=== PATIENT | female | born 1965 | race Caucasian/White ===

== ENCOUNTER → 2016-11-20 | Outpatient (CLI) | payer OTHER ==
[~2016-11-20] MED LIST: ABILIFY 10MG TA10 MG PO; PRISTIQ100 MG PO; WELLBUTRIN XL300 M1 PO
== END ==
LOC: BHSO 08:53
DX: F33.42 Major depressive disorder, recurrent, in full remission (principal)

== ENCOUNTER → 2017-05-06 | Outpatient (CLI) | payer OTHER | LOC: MC.RAD 10:27 | DX: Z12.31 Encounter for screening mammogram for malignant neoplasm of breast (principal) ==

== ENCOUNTER → 2017-05-19 | Outpatient (CLI) | payer OTHER | LOC: BHSO 08:17 | DX: F33.42 Major depressive disorder, recurrent, in full remission (principal) ==

== ENCOUNTER → 2017-12-04 | Outpatient (CLI) | payer OTHER | LOC: BHSO 08:47 | DX: F33.1 Major depressive disorder, recurrent, moderate (principal) | CPT/HCPCS: G0463 ==

== ENCOUNTER → 2018-01-12 | Outpatient (CLI) | payer OTHER | LOC: BHSO 13:28 | DX: F33.41 Major depressive disorder, recurrent, in partial remission (principal) | CPT/HCPCS: G0463 ==

== ENCOUNTER → 2018-02-23 | Outpatient (CLI) | payer OTHER | LOC: BHSO 09:33 | DX: F33.42 Major depressive disorder, recurrent, in full remission (principal) | CPT/HCPCS: G0463 ==

== ENCOUNTER → 2018-06-01 | Outpatient (CLI) | payer OTHER | LOC: BHSO 08:54 | DX: F33.42 Major depressive disorder, recurrent, in full remission (principal) ==

== ENCOUNTER → 2018-06-02 | Outpatient (CLI) | payer OTHER | LOC: MC.RAD 08:54 | DX: Z12.31 Encounter for screening mammogram for malignant neoplasm of breast (principal) ==

== ENCOUNTER → 2018-11-30 | Outpatient (CLI) | payer OTHER | LOC: BHSO 08:55 | DX: F33.42 Major depressive disorder, recurrent, in full remission (principal) | CPT/HCPCS: G0463 ==

== ENCOUNTER → 2019-05-12 | Outpatient (CLI) | payer OTHER | LOC: COL.RAD 09:34 | DX: M43.16 Spondylolisthesis, lumbar region (principal); M51.36 Other intervertebral disc degeneration, lumbar region; M51.27 Other intervertebral disc displacement, lumbosacral region; M46.87 Other specified inflammatory spondylopathies, lumbosacral region ==

== ENCOUNTER → 2019-05-24 | Outpatient (CLI) | payer OTHER | LOC: BHSO 08:54 | DX: F33.41 Major depressive disorder, recurrent, in partial remission (principal) | CPT/HCPCS: G0463 ==

== ENCOUNTER → 2019-06-30 | Outpatient (CLI) | payer OTHER | LOC: MHCPAIN 14:04 | DX: G89.29 Other chronic pain (principal); M47.817 Spondylosis without myelopathy or radiculopathy, lumbosacral region; M53.3 Sacrococcygeal disorders, not elsewhere classified | CPT/HCPCS: G0463 ==

== ENCOUNTER → 2019-07-09 | Outpatient (CLI) | payer OTHER | LOC: MC.RAD 08:31 | DX: Z12.31 Encounter for screening mammogram for malignant neoplasm of breast (principal) ==

== ENCOUNTER → 2019-07-22 | Outpatient (CLI) | payer OTHER | LOC: MHCPAIN 08:35 | DX: M47.817 Spondylosis without myelopathy or radiculopathy, lumbosacral region (principal); M54.16 Radiculopathy, lumbar region ==

== ENCOUNTER → 2019-07-26 | Outpatient (CLI) | payer OTHER | LOC: BHSO 09:00 | DX: F33.41 Major depressive disorder, recurrent, in partial remission (principal) | CPT/HCPCS: G0463 ==

== ENCOUNTER → 2019-07-27 | Outpatient (CLI) | payer OTHER | LOC: MHCPAIN 12:24 | DX: G89.29 Other chronic pain (principal); M47.817 Spondylosis without myelopathy or radiculopathy, lumbosacral region; M54.16 Radiculopathy, lumbar region; M53.3 Sacrococcygeal disorders, not elsewhere classified; M96.1 Postlaminectomy syndrome, not elsewhere classified | CPT/HCPCS: G0463 ==

== ENCOUNTER → 2019-08-12 | Outpatient (CLI) | payer OTHER | LOC: MHCPAIN 08:35 | DX: M47.817 Spondylosis without myelopathy or radiculopathy, lumbosacral region (principal); M54.16 Radiculopathy, lumbar region; M96.1 Postlaminectomy syndrome, not elsewhere classified | CPT/HCPCS: J1100; Q9967 ==

== ENCOUNTER → 2019-08-25 | Outpatient (CLI) | payer OTHER | LOC: MHCPAIN 10:08 | DX: G89.29 Other chronic pain (principal); M47.817 Spondylosis without myelopathy or radiculopathy, lumbosacral region; M54.16 Radiculopathy, lumbar region; M53.3 Sacrococcygeal disorders, not elsewhere classified | CPT/HCPCS: G0463 ==

== ENCOUNTER → 2019-09-02 | Outpatient (CLI) | payer OTHER | LOC: MHCPAIN 08:40 | DX: M47.817 Spondylosis without myelopathy or radiculopathy, lumbosacral region (principal); M54.16 Radiculopathy, lumbar region | CPT/HCPCS: J1100; Q9967 ==

== ENCOUNTER → 2019-09-15 | Outpatient (CLI) | payer OTHER | LOC: MHCPAIN 09:25 | DX: G89.29 Other chronic pain (principal); M47.817 Spondylosis without myelopathy or radiculopathy, lumbosacral region; M54.16 Radiculopathy, lumbar region; M53.3 Sacrococcygeal disorders, not elsewhere classified; M96.1 Postlaminectomy syndrome, not elsewhere classified | CPT/HCPCS: G0463 ==

== ENCOUNTER → 2020-07-14 | Outpatient (CLI) | payer OTHER | LOC: MC.RAD 10:15 | DX: Z12.31 Encounter for screening mammogram for malignant neoplasm of breast (principal); S29.021A Laceration of muscle and tendon of front wall of thorax, initial encounter ==

== ENCOUNTER → 2020-07-21 | Outpatient (CLI) | payer OTHER | LOC: MC.RAD 13:53 | DX: N63.20 Unspecified lump in the left breast, unspecified quadrant (principal) ==

== ENCOUNTER → 2021-01-19 | Outpatient (CLI) | payer OTHER | LOC: MC.RAD | DX: N63.20 Unspecified lump in the left breast, unspecified quadrant (principal) ==

== ENCOUNTER → 2021-08-15 | Outpatient (CLI) | payer OTHER | LOC: MC.RAD 09:28 | DX: Z12.31 Encounter for screening mammogram for malignant neoplasm of breast (principal) ==

== ENCOUNTER → 2022-08-27 | Outpatient (CLI) | payer OTHER | LOC: MC.RAD 10:12 | DX: Z12.31 Encounter for screening mammogram for malignant neoplasm of breast (principal) ==

== ENCOUNTER → 2023-09-03 | Outpatient (CLI) | payer OTHER | LOC: MC.RAD 06:54 | DX: R92.8 Other abnormal and inconclusive findings on diagnostic imaging of breast (principal) ==

== ENCOUNTER 2024-01-05 08:37 | Emergency (ER) | payer OTHER ==
[~2024-01-05] VITALS: Ht 167.6 cm; Wt 75.0 kg
[2024-01-05 08:41] VITALS: TEMP 98.3
[2024-01-05] MEDS ORDERED: LR 1,000 ML IV ONE (09:15)
[2024-01-05] MEDS ORDERED: Morphine 4 MG/ML VIAL IV ONE (09:15)
[2024-01-05] MEDS ORDERED: Ondansetron 4 MG/2 ML VIAL IV ONE (09:15)
[2024-01-05 09:24] LABS: BASO % 0.3 % (0.0-2.0); EOS % 0.2 % (0.0-4.0); GRAN # 8.6 K/mm3 (1.4-6.5); GRAN % 83.6 % (42.2-75.2); HEMATOCRIT 38.8 % (37.0-47.0); HEMOGLOBIN 13.1 g/dl (12.5-16.0); LYMPH # 1.1 K/mm3 (1.2-3.4); LYMPH % 10.4 % (20.0-51.0); MEAN CELL VOLUME 91 fl (80.0-100.0); MEAN CORPUSCULAR HEMOGLOBIN 31 pg (27-31); MEAN CORPUSCULAR HGB CONC 34 g/dl (33.0-37.0); MEAN PLATELET VOLUME 8.1 fl (7.4-10.4); MONO # 0.5 K/mm3 (0.1-0.6); MONO % 5.3 % (1.7-9.3); PLATELET COUNT 253 K/mm3 (130-400); RED BLOOD COUNT 4.26 M/mm3 (4.10-5.30); REDCELL DISTRIBUTION WIDTH-CV 12.7 % (11.5-14.5)
[2024-01-05 09:37] LABS: ALBUMIN 3.6 gm/dL (3.4-4.8); BILIRUBIN,TOTAL 1.5 mg/dL (0.2-1.2); C-REACTIVE PROTEIN 10.93 mg/dL (0.00-0.50); CALCIUM 9.8 mg/dL (8.4-10.2); CREATININE, serum 0.86 mg/dL (0.57-1.11); POTASSIUM 3.9 mmol/L (3.5-4.5); TOTAL PROTEIN 7.8 gm/dL (6.2-8.1)
[2024-01-05] MEDS ORDERED: Iohexol 300 - 100 ML VIAL IV ONE (11:11)
[2024-01-05] MEDS ORDERED: NS 100 ML IV SCH (11:12)
[2024-01-05 11:18] LABS: URINE APPEARANCE CLEAR (CLEAR/HAZY); URINE BLOOD TRACE (NEGATIVE); URINE COLOR YELLOW (YELLOW); URINE GLUCOSE NEGATIVE (NEGATIVE); URINE KETONE NEGATIVE (NEGATIVE); URINE NITRATE NEGATIVE (NEGATIVE); URINE PROTEIN(semi-quant) NEGATIVE (NEGATIVE)
[2024-01-05 11:26] LABS: COLLECTION METHOD CLEAN CATCH
[2024-01-05] MEDS ORDERED: AMOXICILLIN 8751 TAB PO (12:09)
[2024-01-05] MEDS ORDERED: NORCO 325 MG-51 TAB PO (12:09)
[2024-01-05] MEDS ORDERED: cefTRIAXone 2 G in Water For Injection,Sterile 20 ML IV ONE (12:15)
[2024-01-05 12:34] VITALS: BP 145/81; PULSE 105
== END 2024-01-05 12:34 | disposition home or self-care (01) ==
LOC: COL.ER 08:37
PROVIDERS: Family Medicine
DX: N12 Tubulo-interstitial nephritis, not specified as acute or chronic (principal); Z90.49 Acquired absence of other specified parts of digestive tract
CPT/HCPCS: J0696; J2270; J2405; J7120; Q9967

== ENCOUNTER 2024-06-28 09:17 | Day surgery (SDC) | payer OTHER ==
[~2024-06-28] VITALS: Ht 167.6 cm; Wt 81.3 kg
[~2024-06-28 09:17] MED LIST changes: +AMOXICILLIN 8751 TAB PO; +LR 1,000 ML IV SCH; +NORCO 325 MG-51 TAB PO; +Ondansetron 4 MG/2 ML VIAL IV PRN
[2024-06-28 09:44] VITALS: BP 139/89; PULSE 72; TEMP 98
[2024-06-28] MEDS ORDERED: MINOXIDIL 2.5 PO (10:09)
[2024-06-28] MEDS ORDERED: BRINTELLIX20 PO (10:09)
[2024-06-28] MEDS ORDERED: ESTRACE 1MG1 MG/TAB PO (10:10)
[2024-06-28] MEDS ORDERED: SYNTHROID0.075 MG/T PO (10:10)
[2024-06-28] MEDS ORDERED: PROSCAR 5MG5 MG PO (10:11)
[2024-06-28] MEDS ORDERED: PRESERVISION1 SGL PO (10:12)
[2024-06-28] MEDS ORDERED: OSCAL 500 TAB500 MG PO (10:13)
[2024-06-28] MEDS ORDERED: EPA FISH OIL1 SGL PO (10:13)
[2024-06-28] MEDS ORDERED: MULTIPLE VITAMI1 CAP PO (10:13)
--- NOTE | 2024-06-28 10:14 | NUR ---
PT alert, oriented x4, makes needs known, ambulates with steady gait. Admitted to [facility]. Consents signed, admission assessments completed. Medications, allergies, and pharmacy confirmed. 20G IV inserted to right hand, LR infusing without complications. Pt reports prep effective, clear stools noted. brought to room. Resting in recliner chair, feet elevated. Call light within reach.
[2024-06-28] MEDS ORDERED: Lidocaine PF 2% (20 MG/ML) 5 ML VIAL ONE (10:35)
[2024-06-28 11:05] VITALS: BP 125/79; PULSE 70
[2024-06-28 11:20] VITALS: BP 132/83; PULSE 72
[2024-06-28 11:35] VITALS: BP 131/78; PULSE 71
--- NOTE | 2024-06-28 16:27 | NUR ---
1105 PATIENT RETURNS TO [facility] VIA CART. PT AWAKE AND ALERT. RESPIRATIONS UNLABORED. AMBULATED TO RECLINER CHAIR WITH 2:1 SBA. PT DENIES NAUSEA OR ABDOMINAL PAIN. HOOKED UP TO MONITOR AND VS OBTAINED. CALL LIGHT AT SIDE AND PRESENT. 1110 PATIENT TOLERATING MUFFIN AND PEPSI WITHOUT NAUSEA OR DIFFICULTY SWALLOWING. 1120 DR. BRAVO IN ROOM SPEAKING WITH PATIENT. 1130 D/C INSTRUCTIONS REVIEWED WITH PATIENT. PT VERBALIZED UNDERSTANDING AND A COPY OF INSTRUCTIONS PROVIDED IN D/C FOLDER. 1140 PATIENT DRESSES SELF. 1250 PATIENT DISCHARGED FROM UNIT VIA W/C TO A PERSONAL VEHICLE. PT LEFT HOSPITAL IN STABLE CONDITION.
== END 2024-06-28 12:50 | disposition home or self-care (01) ==
LOC: SDCO 09:17
DX: Z12.11 Encounter for screening for malignant neoplasm of colon (principal); Z86.010 Personal history of colon polyps; D12.3 Benign neoplasm of transverse colon; K63.89 Other specified diseases of intestine; K64.0 First degree hemorrhoids
CPT/HCPCS: J2704; J7120

== ENCOUNTER → 2024-08-16 | Outpatient (CLI) | payer OTHER ==
[~2024-08-16] MED LIST changes: +BRINTELLIX20 PO; +EPA FISH OIL1 SGL PO; +ESTRACE 1MG1 MG/TAB PO; -LR 1,000 ML IV SCH; +MINOXIDIL 2.5 PO; +MULTIPLE VITAMI1 CAP PO; +OSCAL 500 TAB500 MG PO; -Ondansetron 4 MG/2 ML VIAL IV PRN; +PRESERVISION1 SGL PO; +PROSCAR 5MG5 MG PO; +SYNTHROID0.075 MG/T PO
== END ==
LOC: COL.RAD 14:40
DX: R93.421 Abnormal radiologic findings on diagnostic imaging of right kidney (principal); Z87.440 Personal history of urinary (tract) infections